=== PATIENT | male | born 1955 | race Caucasian/White ===

== ENCOUNTER 2021-05-19 11:16 | Outpatient (CLI) | payer OTHER, BC, SELFPAY ==
--- NOTE | ~2021-05-19 | XR_ITS ---
XR lumbar spine min 4V DATE: 05/19/2021 11:51 INDICATION: Low back pain. Lifting injury yesterday. TECHNIQUE: AP, lateral, bilateral oblique views and coned lateral lumbosacral view COMPARISON: None FINDINGS: There is mild levoscoliosis of the lumbar and thoracic spine. There is normal alignment of the lumbar spine. No fracture or bone destruction, spondylolisthesis or spondylolisthesis is detected . The lumbar pedicles are intact. There is mild degenerative disc disease at L3-4 and moderately prominent degenerative disc disease at L4-5 and L5-S1. The sacroiliac joints are intact. IMPRESSION: Mild to moderate degenerative disc disease at the mid and lower lumbar spine Reviewed, dictated and finalized at location A. 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
== END 2021-05-19 11:17 | disposition home or self-care (01) ==
LOC: ANHIMG 11:28
PROVIDERS: PCP Family Medicine; Visit Provider Physician Assistant
DX: M41.9 Scoliosis, unspecified (principal); M47.817 Spondylosis without myelopathy or radiculopathy, lumbosacral region
CPT/HCPCS: 72110

== ENCOUNTER 2023-06-16 09:33 | Outpatient (CLI) | payer MEDICARE, SELFPAY ==
--- NOTE | ~2023-06-16 | US_ITS ---
EXAMINATION: US soft tissue UE LT DATE: 06/16/2023 10:20 INDICATION: Localized swelling, mass or lump at the anterior left shoulder TECHNIQUE: Multiple grayscale and Doppler ultrasound images of the region of concern anterior to the left shoulder were obtained. COMPARISON: None FINDINGS: 5.4 x 5.2 x 1.5 cm ovoid subcutaneous mass at the region of concern. The mass is isoechoic and with i dentical echotexture and internal septated architecture as the surrounding subcutaneous fat which wou ld be most consistent with a lipoma. The underlying musculature is unremarkable. There is suggestion of a small underlying joint effusion likely at the glenoid humeral joint. IMPRESSION: 1. 5.4 x 5.2 x 1.5 cm nonspecific subcutaneous mass at the region of concern with appearance most con sistent with and statistically most likely to represent a lipoma. Reviewed, dictated and finalized at location A. ER FIXER IMPRESSION: 1. 5.4 x 5.2 x 1.5 cm nonspecific subcutaneous mass at the region of concern wi th appearance most consistent with and statistically most likely to represent a lipoma.
== END 2023-06-16 09:34 | disposition home or self-care (01) ==
LOC: ANHIMG 09:36
PROVIDERS: PCP Family Medicine; Visit Provider Physician Assistant
DX: R22.32 Localized swelling, mass and lump, left upper limb (principal)
CPT/HCPCS: 76882

== ENCOUNTER 2023-10-04 01:25 | Day surgery (SDC) | payer MEDICARE, SELFPAY ==
[2023-09-19 11:45] VITALS: BMI 29.5
--- NOTE | 2023-09-19 11:53 | PC.NURSE ---
Report to the Outpatient Waiting Room, entrance under the green pavilion located off [facility], at time __0600 on date __10/04/23 . Planned Procedure Time: ___729 . Time changes happen often and if your time is changed the preop area will call you the afternoon before. - You and your visitor will be asked to self-screen and do not enter if you have any COVID symptoms. - A mask is optional within the hospital at this time. Patients may have clear liquids (water, carbonated beverages, clear teas, apple juice) until 3 hours prior to surgery (0430 AM) with a maximum of 20 ounces. - No food from midnight until time of surgery - Infants may have breast milk until 4 hours before surgery, formula 6 hours prior to surgery. - Children will be allowed to drink immediately following surgery. If applicable, please bring a bottle or sippy cup to assist with drinking. Juice, water, soda, and popsicles are readily available. For infants on formula, please bring formula the day of surgery. Pacifiers are allowed. Take the following medications with a SIP of water the morning of surgery: ____AMLODIPINE DO NOT STOP ANY OF YOUR OTHER PRESCRIPTION MEDICATIONS PRIOR TO SURGERY ?EXCEPT THE FOLLOWING Medications to discontinue per physician N/A Date to take last dose Please no make-up, nail moroccan, hairspray, perfume, deodorant, or body powder the day of surgery. No jewelry (including any body piercings) or valuables the day of surgery, leave them at home. Please take a shower or bath the night before, or the morning of, surgery with an antibacterial soap. Wear comfortable, loose fitting clothing. Children are encouraged to wear pajamas. - Jewelry must be removed prior to entering the operating room. Rings and piercings that are not removed may be cut off. - The hospital will not accept responsibility for valuables. - Please leave all valuables, including medications, at home the day of surgery. If you are going home after surgery, a licensed commercial driver's license driver must drive you home. - NO public transportation without another adult if you receive anesthesia. - We recommend that an adult stay with you for 24 hours following discharge. - We also recommend that you do not drive, make important decision, drink alcoholic beverages, or take any drugs that were not prescribed by your health care provider for at least 24 hours after your discharge time. For Pediatric surgeries, we recommend two adults accompany the child home. Follow any additional instructions given to you from your surgeon. If you or anyone in your household have experienced Covid symptoms in the past week, please notify your surgeon or the nurse liaison at the phone number below for possible testing. Telephone instructions given to ____PT and asked if any additional questions and then verbalized understanding. Patient advised to call surgeon office or pre surgery nurse liaison [phone] if any additional questions.
[2023-10-04] VITALS (9 sets, daily range): BP systolic 107–153; BP diastolic 73–86; PULSE 57–69; RESP 12–16; TEMP 36.1–37.2; O2SAT 98–99
--- NOTE | 2023-10-04 06:51 | P.PNAN_ITS ---
Anes - Initial Pre Proc Eval Procedure: Operation Date: 10/04/23 07:30 Proposed Procedures p Excisional Biopsy of Left Shoulder Mass - Corazon Ruiz MD Date/Time: 10/04/23 06:51 Surgeon: Corazon Ruiz MD Pre Op Diagnosis: left shoulder mass Patient Data Age: 68 Gender: M Height: 1.78 m Weight: 93.18 kg Allergies Allergy/AdvReac Type Severity Reaction Status Date / Time poison osmany extract Allergy Severe Rash Verified 09/19/23 11:43 Home Medications Medication Instructions Recorded Confirmed Type sildenafil 100 mg tablet 50 mg PO DAILY PRN sexual activity 11/28/22 09/19/23 Rx #90 tabs rosuvastatin 5 mg tablet 5 mg PO DAILY #90 tabs 03/19/23 09/19/23 Rx allopurinol 100 mg tablet 200 mg PO DAILY #180 tabs 07/27/23 09/19/23 Rx amlodipine 10 mg tablet 10 mg PO DAILY #90 tabs 07/27/23 09/19/23 Rx irbesartan 300 mg tablet 300 mg PO DAILY #90 tabs 08/03/23 09/19/23 Rx Patient hx anesthesia problems: none Family hx anesthesia problems: none Results Review: All pre-operative results and documents have been reviewed as part of the pre- operative evaluation. [facility] Past Medical History Medical History Dyslipidemia Erectile dysfunction Essential (primary) hypertension Gout, unspecified Family History Family History Mother Family history of malignant neoplasm of stomach Social History Social History Smoking packs per day: 1 Smoking cigarettes per day: 20.0 Years smoked: 14 Smoking pack-years: 14.00 Smoking status: Former smoker Tobacco type: cigarettes Second hand tobacco smoke exposure: No Smoking end date: 05/14/89 Alcohol intake: current Drinks per week: 10 Substance use: never Substance use type: does not use Do You Feel Safe in your Home?: Yes Lack of Transportation: No Lack of Food: Never True Current Housing: I Have Housing Concerned About Future Housing: No Difficulty Paying Gas/Electric Bills: No Difficulty Paying for Meds: No Currently Unemployed: No Education: Associate Degree Living arrangements: with family Occupation/Education: occupation Gender identity (if verbalized by the patient): Male Sexual Orientation (if Verbalized by the Patient): Straight or Heterosexual Spiritual care concerns: No Anes - Eval Final PreProcedure Day of Procedure 10/04/23 06:51 Patient weight: normal Heart: regular rate and rhythm Lungs: clear to auscultation Airway: Mallampati scale and special considerations (Overbite noted. ) Neurological: alert and oriented Last oral intake: >/= 8 hours ASA classification: II Emergent: no Anesthetic plan: proceed Anesthesia type and monitoring: general LMA and standard monitoring Results Review: All pre-operative results and documents have been reviewed as part of the pre-operative evaluation. HTN, Hyperlipidemia, hx of smoking. Informed Consent: The patient's anesthetic plan and its attendant risks and benefits were discussed with the patient/family/POA. Questions were solicited and answers provided to the satisfaction of the patient/family/POA.
[2023-10-04] MEDS: LACTATED RINGERS 1,000 ML 30 ML IV CONT (07:00)
--- NOTE | 2023-10-04 07:21 | WPDHPUPDATE1 ---
History and Physical Update Update Date/Time: 10/04/23 07:21 History and Physical has been reviewed, including an updated exam of the patient. There are NO changes in the patient's condition. Risks, benefits, and alternatives have been discussed and questions answered. Patient agrees to proceed with procedure.
[2023-10-04] MEDS: ceFAZolin 2 GM/D5W 50 ML 2 GM/50 ML BAG IVPB (07:35)
[2023-10-04] MEDS: LIDOCAINE HCL 1% LOCAL INJ 20 ML VIAL INFILTRATE (08:00)
--- NOTE | 2023-10-04 08:11 | P.OP_ITS ---
Procedure Note - Detailed Date of Procedure 10/04/23 Pre-op Diagnosis left shoulder mass measuring 7 x 5 cm Post-op Diagnosis Same Procedure Performed excisional biopsy left shoulder mass measuring 7 x 5 cm most consistent with lipoma Surgeon Corazon Ruiz MD Anesthesia General and Local Indications 68-year-old male with a large left shoulder mass causing pain and limiting range of motion Findings 7 x 5 cm subcutaneous left shoulder mass most consistent with lipoma Description of Procedure The patient was taken the operating room and placed in the supine position. After adequate induction of general anesthesia, the patient was prepped and draped in the normal sterile fashion. Time-out was then done to verify the patient's identity, as well as the procedure being performed. I began by localizing the area in and around this anterior shoulder mass. Once anesthetized, I made an incision over the mass. This was carried down through the dermis and into the subcutaneous tissue. Located within the subcutaneous tissue, a well in capsular mass was encountered. This was noted to be most consistent with a lipoma. The mass was contained within the subcutaneous tissue and did not extend into the underlying fascia or muscle. I was able to excise the mass in full, which measured approximately 7 x 5 cm. Once excised, the cavity was examined and no other pathology was noted. I then closed the valencia bcutaneous tissue with 3-0 Vicryl suture. The skin was closed with 4-0 Monocryl subcuticular suture. Dermabond was placed on the wound. The patient tolerated the procedure well and was extubated postoperatively. He will be transferred to the recovery room in stable condition. Estimated Blood Loss 5 Drains No Packing No Pathology Yes Complications No immediate complications Condition Stable Disposition PACU
== END 2023-10-04 10:27 | disposition home or self-care (01) ==
PROVIDERS: PCP Family Medicine; Visit Provider Surgery
PROC: (CPT 24071; principal; 2023-10-04 07:30)
DX: D17.22 Benign lipomatous neoplasm of skin and subcutaneous tissue of left arm (principal); E78.5 Hyperlipidemia, unspecified; I10 Essential (primary) hypertension; M10.9 Gout, unspecified; Z87.891 Personal history of nicotine dependence
CPT/HCPCS: 24071; 88304; J0690; J1100; J2250; J2405; J2704; J3010; J7120

== ENCOUNTER 2025-03-17 18:46 | Emergency (ER) | payer MEDICARE, SELFPAY ==
[2025-03-17 18:49] VITALS: BP 156/96; PULSE 95; RESP 18; TEMP 36.8; O2SAT 100
--- NOTE | 2025-03-17 19:43 | ED.GENADULT ---
HPI - General Adult General Chief complaint: Urogenital-Male Stated complaint: not peeing right Time Seen by Provider: 03/17/25 19:11 History of Present Illness HPI narrative: this is a 69-year-old male presenting ED with chief complaint of urinary retention. Patient says he has been unable to pass more than a few drops of urine since 10:00 a.m. this morning. He has tried multiple times. He has now developed significant suprapubic pain and pressure. Patient denies fevers. He states he does have pain on urination. No flank pain. Patient states he is supposed to be taking Flomax but he did think it would work. Related Data Allergies Allergy/AdvReac Type Severity Reaction Status Date / Time poison osmany extract Allergy Severe Rash Verified 03/17/25 18:48 PMFSH Past Medical History Medical History Erectile dysfunction Dyslipidemia Essential (primary) hypertension Gout, unspecified Surgical History Surgical History Hx of excision of mass excisional biopsy left shoulder mass measuring 7 x 5 cm most consistent with lipoma 10/04/23 Family History Family History Mother Family history of malignant neoplasm of stomach Social History Social History Smoking packs per day: 0 Smoking cigarettes per day: 0.0 Years smoked: 14 Smoking pack-years: 0.00 Tobacco type: cigarettes Second hand tobacco smoke exposure: No Smoking end date: 05/14/89 Alcohol intake: current Drinks per week: 10 Substance use: never Substance use type: does not use Do You Feel Safe in your Home?: Yes Lack of Transportation: No Lack of Food: Never True Current Housing: I Have Housing Concerned About Future Housing: No Difficulty Paying Gas/Electric Bills: No Difficulty Paying for Meds: No Currently Unemployed: No Education: Associate Degree Living arrangements: with family Occupation/Education: occupation Gender identity (if verbalized by the patient): Male Sexual Orientation (if Verbalized by the Patient): Straight or Heterosexual Spiritual care concerns: No Exam Narrative: APPEARANCE: Patient appears uncomfortable Head: atraumatic. EYES: EOMI, NOSE: Atraumatic NECK: Trachea midline RESPIRATORY: No increased rate of breathing Clear to auscultation CARDIOVASCULAR: RRR, ABDOMINAL: tense, tender suprapubic mass. rest of the abdomen is soft nontender. MUSCULOSKELETAl: No obvious deformities NEURO: Alert. Moving 4/4 extremities SKIN:: Warm, dry. Normal color PSYCHIATRIC: Normal affect Course Vital Signs Vital signs: Vital Signs Temperature 98.2 F 03/17/25 18:49 Pulse Rate 95 03/17/25 18:49 Respiratory Rate 18 03/17/25 18:49 Blood Pressure 156/96 H 03/17/25 18:49 Pulse Oximetry 100 03/17/25 18:49 Temperature 98.2 F 03/17/25 18:49 Pulse Rate 95 03/17/25 18:49 Respiratory Rate 18 03/17/25 18:49 Blood Pressure 156/96 H 03/17/25 18:49 Pulse Oximetry 100 03/17/25 18:49 Medical Decision Making MDM Narrative Medical decision making narrative: -Course: 69-year-old male presenting with acute urinary retention. He is very uncomfortable. his bladder is tense and palpable suprapubic region.. Nursing staff was instructed to immediately place Taylor for patient relief. Taylor was placed. It is draining yellow urine. Urinalysis was not indicative infection. Patient will be discharged follow-up with Urology. Given prescription for Flomax. -DDX includes but is not limited to: Acute urinary retention, UTI Vital Signs Vital Signs: Vital Signs Temperature 98.2 F 03/17/25 18:49 Pulse Rate 95 03/17/25 18:49 Respiratory Rate 18 03/17/25 18:49 Blood Pressure 156/96 H 03/17/25 18:49 Pulse Oximetry 100 03/17/25 18:49 Temperature 98.2 F 03/17/25 18:49 Pulse Rate 95 03/17/25 18:49 Respiratory Rate 18 03/17/25 18:49 Blood Pressure 156/96 H 03/17/25 18:49 Pulse Oximetry 100 03/17/25 18:49 Lab Data Labs: Lab Results 03/17/25 Range/Units 19:52 Urine Color Yellow (Yellow) Urine Appearance Clear (Clear) Urine pH 6.5 (5.0-9.0) Ur Specific [place] 1.009 (1.001-1.035) Urine Protein Negative (Negative) mg/dL Urine Glucose (UA) Negative (Negative) mg/dL Urine Ketones 1+ H (Negative) mg/dL Ur Blood (Man) 2+ H (Negative) Urine Nitrate Negative (Negative) Urine Bilirubin Negative (Negative) Urine Urobilinogen 0.2 (<2.0) mg/dL Leukocyte Esterase Rfl Negative (Negative) ROBE/UL Urine RBC 21-50 H (0-2) /hpf Urine WBC 0-5 (0-3) /hpf Ur Squamous Epith Cells None seen (Few) /hpf Urine Bacteria None seen /hpf Urine Casts 0-2 Discharge Plan Discharge Clinical Impression: Acute urinary retention Patient Disposition: Home Condition: Stable Instructions: Antibiotic Form, Urinary Retention in Men (ED) Additional Instructions: You were seen in the emergency department for acute urinary retention. Please resume your Flomax once daily. Please call the urologist below tomorrow morning and arrange follow-up for further management. Return if your taylor stops draining or you develop severe abdominal pain fevers or flank pain. Patient Language: Setswana Prescriptions: New tamsulosin [Flomax] 0.4 mg capsule 0.4 mg PO DAILY Qty: 30 0RF No Action rosuvastatin 5 mg tablet 5 mg PO DAILY Qty: 90 3RF irbesartan 300 mg tablet 300 mg PO DAILY Qty: 90 1RF tadalafil 20 mg tablet 5 mg PO DAILY PRN (Reason: sexual activity) Qty: 90 0RF Rx Instructions: administer approximately 30min before sexual activity; do not use more than 1 dose per 24hrs allopurinol 100 mg tablet 200 mg PO DAILY Qty: 180 1RF amlodipine 10 mg tablet 10 mg PO DAILY Qty: 90 2RF Rx Instructions: QAM Follow-up/Referrals: Brian Salgado MD [Primary Care Provider, Family Practice] Brina Knight MD [Physician, Urology] - 3 Days Referral Note: Acute urinary retention
--- OUTSIDE RECORDS SUMMARY | 2025-03-17 19:54 | XMS_ITS | Clinical Summary ---
Author Organization [facility] Address [address] [place] [address] Phone Care Team Providers Care Quality Improvement Specialist Name Role Phone Unavailable Primary Care Provider Unavailabl e Allergies No known active allergies Medications LOSARTAN POTASSIUM (LOSARTAN ORAL) Take by mouth. Active HYDROCHLOROTHIAZ VISH ORAL Take by mouth. Active ALLOPURINOL ORAL Take by mouth. Active oxyCODONE-acetam inophen (PERCOCET) 7.5-325 mg Oral Tab Take 1 Tab by mouth every 4 hours as needed for Pain, Moderate. 20 Tab None 12/03/2012 Active Active Problems No known active problems Immunizations Immunization Administration Dates Next Due (ADACEL/BOOSTRIX)(10 YR UP) TDAP VACCINE, 0.5ML, IM 12/03/2012 Social History Tobacco Use Types Packs/Day Years Used Date Smoking Tobacco: Former Alcohol Use Standard Drinks/Week Comments Yes 0 (1 standard drink = 0.6 oz pur e alcohol) 1 glass wine/day Sex and Gender Information Value Date Recorded Sex Assigned at Not on file Legal Sex Male 10:18 AM CDT Gender Identity Not on file Sexual Orientation Not on file Last Filed Vital Signs Vital Sign Reading Time Taken Comments Blood Pressure 182/110 12/03/2012 10:50 AM CDT Pulse 69 12/03/2012 10:22 AM CDT Temperature 36.9 C (98.4 F) 12/03/2012 10:22 AM CDT Respiratory Rate 18 12/03/2012 10:22 AM CDT Oxygen Saturation 99% 12/03/2012 10:22 AM CDT Inhaled Oxygen Concentration - - Weight 90.7 kg (200 lb) 12/03/2012 10:22 AM CDT Height 180.3 cm (5' 11) 12/03/2012 10:22 AM CDT Body Mass Index 27.89 12/03/2012 10:22 AM CDT Plan of Treatment Health Maintenance Due Date Last Done Comments COLORECTAL SCREENING 2002 Colorectal Cancer Screening 2002 FIT-DNA Q 3 years 2002 FIT/FOBT Q 1 year 2002 Flex Sig/CT Colonography Q 5 years 2002 PNEUMOCOCCAL VACCINE 50+ YEARS (1 of 1 - PCV) 10/02/19 08 ZOSTER VACCINE (1 of 2) 10/02/2007 DTAP/TDAP/TD VACCINES (2 - Td or Tdap) 12/03/2022 INFLUENZA VACCINE (#1) 2024 RSV VACCINE (60+ or ) (1 - 1-dose 75+ series) 2032 Insurance
[2025-03-17 20:02] LABS: Add Urine Microscopic? YES; Appearance Urine Clear (Clear); Glucose Urine UA Negative (Negative); Leukocyte Esterase Ur Negative LEU/UL (Negative); Nitrate Urine Negative (Negative); Non Pathogenic Casts 0-2; Specific Grav Ur 1.009 (1.001-1.035)
--- NOTE | 2025-03-17 20:41 | PC.NURSE ---
Pt provided with leg bag and applied before discharge.
== END 2025-03-17 20:41 | disposition home or self-care (01) ==
LOC: ANHED 19:52
PROVIDERS: Emergency Provider Emergency Medicine; PCP Family Medicine
DX: R33.9 Retention of urine, unspecified (principal); I10 Essential (primary) hypertension; E78.5 Hyperlipidemia, unspecified; M10.9 Gout, unspecified; Z87.891 Personal history of nicotine dependence
CPT/HCPCS: 51702; 81001; 99283